=== PATIENT | male | born 1965 | race African-American/Black ===

== ENCOUNTER 2022-10-17 21:22 | Inpatient (IN) | payer OTHER ==
[2022-10-17 22:20] VITALS: BMI 18.2
[2022-10-17] MEDS ORDERED: chlordiazePOXIDE HCL 25 MG CAPSULE PO PRN (22:42)
[2022-10-17] MEDS ORDERED: METOPROLOL TARTRATE 25 MG TABLET (FP) PO ONE (22:42)
[2022-10-17] MEDS ORDERED: IBUPROFEN 400 MG TABLET (FP) PO PRN (22:43)
[2022-10-17] MEDS ORDERED: POLYETHYLENE GLYCOL (HEALTHYLAX) 3350 17 GM PACKET PO PRN (22:43)
[2022-10-17] MEDS ORDERED: ONDANSETRON *ODT* 4 MG TABLET SL PRN (22:43)
[2022-10-17] MEDS ORDERED: LOPERAMIDE HCL 2 MG CAPSULE PO PRN (22:43)
[2022-10-17] MEDS ORDERED: NICOTINE POLACRILEX 2 MG GUM BUC PRN (22:43)
[2022-10-17] MEDS ORDERED: IBUPROFEN 600 MG TABLET (FP) PO PRN (22:43)
[2022-10-17] MEDS ORDERED: METHOCARBAMOL 500 MG TABLET PO PRN (22:43)
[2022-10-17] MEDS ORDERED: MAGNESIUM HYDROX 2400MG/30ML ORAL SUSPENSION 30 ML CUP PO PRN (22:43)
[2022-10-17] MEDS ORDERED: MAG HYDROX/AL HYDROX/SIMETH 30 ML UNIT-DOSE CUP PO PRN (22:43)
[2022-10-17] MEDS ORDERED: DICYCLOMINE HCL 10 MG CAPSULE PO PRN (22:43)
[2022-10-17] MEDS ORDERED: BENZOCAINE/MENTHOL (CHLORASEPTIC ) LOZENGE MM PRN (22:43)
[2022-10-17] MEDS ORDERED: ACETAMINOPHEN 325 MG TABLET (FP) PO PRN ×2 (22:43)
[2022-10-17] MEDS ORDERED: BISMUTH SUBSALICYLATE 524 MG/30 ML PO PRN (22:43)
[2022-10-17] MEDS ORDERED: guaiFENesin 200 MG/10 ML 10 ML UNIT-DOSE CUPS PO PRN (22:43)
[2022-10-17] MEDS ORDERED: P-EPHED 60MG/TRIPROLIDI 2.5MG TABLET PO PRN (22:43)
[2022-10-17] MEDS ORDERED: chlordiazePOXIDE HCL 25 MG CAPSULE ONE (23:22)
[2022-10-17] MEDS ORDERED: METOPROLOL TARTRATE 25 MG TABLET (FP) ONE (23:22)
[2022-10-17] MEDS: chlordiazePOXIDE HCL 25 MG CAPSULE PO SCH (23:29)
[2022-10-18] MEDS: BACITRACIN ZINC 15 GM TUBE TOPICAL OINTMENT TP SCH ×3 (00:06→22:29)
[2022-10-18] MEDS: chlordiazePOXIDE HCL 25 MG CAPSULE PO SCH ×4 (05:14→22:27)
[2022-10-18] MEDS: PRENATAL VITAMINS W/ FOLIC ACID TABLET (FP) PO SCH (10:24)
[2022-10-18 11:22] LABS: HEMATOCRIT 40.6 % (35.4-49); HEMOGLOBIN 13.4 GM/dL (11.7-16.9); MCH 30.6 pg (25.7-33.7); MEAN CELL VOLUME 92.6 fl (80-96); MEAN PLT VOLUME 9.7 fl (7.5-11.1); PLATELET COUNT 217 10^3/uL (134-434); RBC 4.38 M/mm3 (4.00-5.60); RDW 18.1 % (11.9-15.9); WHITE BLOOD COUNT 7.5 K/mm3 (4.0-10.0)
[2022-10-18 11:59] LABS: ALBUMIN 3.5 g/dl (3.4-5.0)
[2022-10-18 12:00] LABS: BLOOD UREA NITROGEN 19.6 mg/dL (7-18)
[2022-10-18 12:04] LABS: BILIRUBIN,TOTAL 0.8 mg/dL (0.2-1); TOT PROT 7.8 g/dl (6.4-8.2)
[2022-10-18] MEDS: MELATONIN 5 MG TABLETS PO PRN (22:26)
[2022-10-18] MEDS: THIAMINE HCL 100 MG TABLET (FP) PO SCH (22:26)
[2022-10-19] MEDS: chlordiazePOXIDE HCL 25 MG CAPSULE PO SCH ×4 (05:43→22:16)
[2022-10-19] MEDS: BACITRACIN ZINC 15 GM TUBE TOPICAL OINTMENT TP SCH ×2 (10:24→22:17)
[2022-10-19] MEDS: PRENATAL VITAMINS W/ FOLIC ACID TABLET (FP) PO SCH (10:24)
[2022-10-19] MEDS: THIAMINE HCL 100 MG TABLET (FP) PO SCH (22:16)
[2022-10-20] MEDS ORDERED: chlordiazePOXIDE HCL 10 MG CAPSULE PO PRN
[2022-10-20] MEDS: chlordiazePOXIDE HCL 10 MG CAPSULE PO SCH ×4 (05:41→22:27)
[2022-10-20] MEDS: PRENATAL VITAMINS W/ FOLIC ACID TABLET (FP) PO SCH (10:16)
[2022-10-20] MEDS: BACITRACIN ZINC 15 GM TUBE TOPICAL OINTMENT TP SCH ×2 (10:16→22:27)
[2022-10-20] MEDS: THIAMINE HCL 100 MG TABLET (FP) PO SCH (22:26)
[2022-10-20] MEDS: MELATONIN 5 MG TABLETS PO PRN (22:26)
[2022-10-21] MEDS: chlordiazePOXIDE HCL 10 MG CAPSULE PO SCH ×2 (05:34→17:16)
[2022-10-21] MEDS: BACITRACIN ZINC 15 GM TUBE TOPICAL OINTMENT TP SCH ×2 (10:13→22:22)
[2022-10-21] MEDS: PRENATAL VITAMINS W/ FOLIC ACID TABLET (FP) PO SCH (10:13)
[2022-10-21] MEDS: MELATONIN 5 MG TABLETS PO PRN (22:21)
[2022-10-21] MEDS: THIAMINE HCL 100 MG TABLET (FP) PO SCH (22:21)
[2022-10-22] MEDS ORDERED: chlordiazePOXIDE HCL 10 MG CAPSULE PO ONE (05:00)
[2022-10-22 08:47] VITALS: RESP 18
[2022-10-22 09:33] VITALS: BP 135/76; PULSE 89; TEMP 96.9
[2022-10-22] MEDS: BACITRACIN ZINC 15 GM TUBE TOPICAL OINTMENT TP SCH (10:09)
[2022-10-22] MEDS: PRENATAL VITAMINS W/ FOLIC ACID TABLET (FP) PO SCH (10:10)
== END 2022-10-22 10:35 | disposition home or self-care (01) | DRG 775 ==
LOC: YASAS 21:22 → Y6N 23:30
PROVIDERS: ADMIT Allergy & Immunology; ATTEND Surgery
PROC: HZ2ZZZZ Detoxification Services for Substance Abuse Treatment (ICD-10-PCS; principal; 2022-10-17)
DX: F10.230 Alcohol dependence with withdrawal, uncomplicated (principal); F17.210 Nicotine dependence, cigarettes, uncomplicated; Z28.310 Unvaccinated for COVID-19; Z28.9 Immunization not carried out for unspecified reason
CPT/HCPCS: 36415; 80053; 85027; 86780; 87811; C9803-CS; U0003; U0005